=== PATIENT | male | born 1975 | race African-American/Black ===

== ENCOUNTER 2021-08-24 12:10 | Emergency (ER) | payer OTHER ==
[~2021-08-24] VITALS: Ht 165.1 cm; Wt 93.6 kg
[2021-08-24] MEDS ORDERED: PRILOSEC OTC20 MG (12:36)
[2021-08-24] MEDS ORDERED: VITAMIN D350 MCG (12:36)
[2021-08-24] MEDS ORDERED: AMLODIPINE BESYL5 MG PO (12:36)
[2021-08-24] MEDS ORDERED: ASPIRIN EC81 MG PO (12:36)
[2021-08-24] MEDS ORDERED: CLOMIPHENE CITR50 MG (12:36)
[2021-08-24] MEDS ORDERED: SPIRONOLACTONE25 MG PO (12:36)
[2021-08-24] MEDS ORDERED: BYDUREON B2 MG/0.85 (12:36)
[2021-08-24] MEDS ORDERED: NIFEDIPINE ER30 M1 PO (12:36)
[2021-08-24] MEDS ORDERED: BENADRYL25 M1 PO (12:36)
[2021-08-24] MEDS ORDERED: DYMISTA NASAL S23 GM INH (12:36)
[2021-08-24] MEDS ORDERED: ALOGLIPTIN25 MG (12:36)
[2021-08-24] MEDS ORDERED: BYSTOLIC10 MG PO (12:36)
[2021-08-24] MEDS ORDERED: FLONASE ALLERG9.9 ML INH (12:36)
[2021-08-24] MEDS ORDERED: CLONIDINE HCL0.1 M1 (12:36)
[2021-08-24] MEDS ORDERED: LATANOPROST 0.7.5 ML (12:36)
[2021-08-24] MEDS ORDERED: SYMBICORT 16010.2 GM INH (12:36)
[2021-08-24] MEDS ORDERED: ALBUTEROL/IPRATROPIUM 3 ML NEB NEB ONE (12:45)
[2021-08-24] MEDS ORDERED: ALBUTEROL/IPRATROPIUM 3 ML NEB ONE (12:49)
[2021-08-24] MEDS ORDERED: TESSALON PERLE100 MG PO (13:57)
[2021-08-24] MEDS ORDERED: CEFDINIR300 MG PO (13:57)
== END 2021-08-24 14:12 | disposition home or self-care (01) ==
LOC: FSED 12:26
DX: R05.9 Cough, unspecified (principal); J20.9 Acute bronchitis, unspecified; E11.65 Type 2 diabetes mellitus with hyperglycemia; I10 Essential (primary) hypertension; J45.909 Unspecified asthma, uncomplicated; K21.9 Gastro-esophageal reflux disease without esophagitis
CPT/HCPCS: 71045; 80053; 85025; 87400; 99284